=== PATIENT | female | born 1945 | race Caucasian/White ===

== ENCOUNTER 2016-09-13 12:46 | Emergency (ER) | payer MEDICARE ==
[~2016-09-13] VITALS: Ht 165.1 cm; Wt 68.0 kg
[~2016-09-13 12:46] MED LIST: ASPI81TA82 PO; LOSA100T3 PO; OYST500T77 PO; ROSU10 PO; VITA100018 PO
[2016-09-13 12:47] VITALS: BP 142/90; PULSE 82; RESP 16; TEMP 98.3; O2SAT 98
--- NOTE | 2016-09-13 13:27 | PD ---
HPI . Weakness Chief Complaint: General Weakness Time Seen by Provider: 13:17 Travel History International Travel<30 days: No Contact w/Intl Traveler<30days: No Traveled to known affect area: No History of Present Illness HPI Patient presents with a 2 day history of generalized weakness. She denies any other complaints. She states that she has had this before result of electrolyte disturbance and a UTI. She reports no exacerbating or relieving symptoms. The weakness has been constant and persistent. PFSH Past Medical History Cardiovascular Problems: Yes (HTN) High Cholesterol: Yes Genitourinary: Yes (chronic kidney disease) Hypertension: Yes Parkinson's Disease: Yes ?: Not Menopausal: Yes Past Surgical History Tonsillectomy: Yes Other Surgery: Yes (achilles tendon repair) Social History Alcohol Use: No Tobacco Use: No Substance Use: No Allergies-Medications (Allergen,Severity, Reaction): Coded Allergies: No Known Allergies (Unverified , 09/13/16) Reported Meds & Prescriptions Reported Meds & Active Scripts Active Reported Vitamin D3 (Cholecalciferol) Unknown Strength Tab 1 Tab PO DAILY Crestor (Rosuvastatin Calcium) 10 Mg Tab 10 Mg PO DAILY Potassium Chloride ER (Potassium Chloride) 10 Meq Cap 10 Meq PO DAILY Sinemet (Carbidopa-Levodopa) 25-100 Mg Tab 1 Tab PO Q8HR Aspirin Adult Low Strength (Aspirin) 81 Mg Tabdr 81 Mg PO DAILY Review of Systems Except as stated in HPI: all other systems reviewed are Neg General / Constitutional: No: Fever, Chills Eyes: No: Blurred Vision, Drainage, Redness HENT: No: Headaches, Lightheadedness Cardiovascular: No: Chest Pain or Discomfort Respiratory: No: Shortness of Breath Gastrointestinal: No: Nausea, Vomiting, Diarrhea, Abdominal Pain Genitourinary: No: Urgency, Frequency, Dysuria Musculoskeletal: No: Myalgias, Arthralgias Neurologic: Positive: Weakness, Tremor (she has a history of Parkinson's), No : Dizziness, Syncope Physical Exam Narrative GENERAL: Patient is awake and alert and in no acute distress. SKIN: Warm and dry. HEAD: Atraumatic. Normocephalic. EYES: Pupils equal and round. Extraocular movements are intact. ENT: No nasal bleeding or discharge. Mucous membranes pink and moist. NECK: Trachea midline. Neck is supple. CARDIOVASCULAR: Regular rate and rhythm. Heart sounds are normal. RESPIRATORY: No accessory muscle use. Lungs are clear with full air movement throughout. GASTROINTESTINAL: Abdomen soft, non-tender, nondistended. MUSCULOSKELETAL: No obvious deformities. No edema. NEUROLOGICAL: Awake and alert. No obvious cranial nerve deficits. Motor grossly within normal limits. Normal speech. She has a resting tremor. PSYCHIATRIC: Appropriate mood and affect; insight and judgment normal. Data Data Last Documented VS Vital Signs Date Time Temp Pulse Resp B/P Pulse Ox O2 Delivery O2 Flow Rate FiO2 09/13/16 12:47 98.3 82 16 142/90 98 Orders Electrocardiogram (09/13/16 13:17) Basic Metabolic Panel (Bmp) (09/13/16 13:17) Complete Blood Count With Diff (09/13/16 13:17) Magnesium (Mg) (09/13/16 13:17) Urinalysis - C+S If Indicated (09/13/16 13:17) Iv Access Insert/Monitor (09/13/16 13:17) Sodium Chloride 0.9% Flush (Ns Flush) (09/13/16 13:30) Labs Laboratory Tests Test 09/13/16 09/13/16 13:30 13:55 Sodium Level 137 MEQ/L Potassium Level 4.3 MEQ/L Chloride Level 101 MEQ/L Carbon Dioxide Level 26.6 MEQ/L Anion Gap 9 MEQ/L Blood Urea Nitrogen 20 MG/DL Creatinine 1.24 MG/DL Estimat Glomerular Filtration 43 ML/MIN Rate Random Glucose 100 MG/DL Calcium Level 9.6 MG/DL Magnesium Level 2.1 MG/DL Urine Color LIGHT-YELLOW Urine Turbidity CLEAR Urine pH 7.0 Urine Specific Davey 1.006 Urine Protein NEG mg/dL Urine Glucose (UA) NEG mg/dL Urine Ketones NEG mg/dL Urine Occult Blood NEG Urine Nitrite NEG Urine Bilirubin NEG Urine Urobilinogen LESS THAN 2.0 MG/DL Urine Leukocyte Esterase NEG Urine RBC 1 /hpf Urine WBC LESS THAN 1 /hpf Urine Mucus FEW /lpf Microscopic Urinalysis Comment CULT NOT INDICATED MDM Medical Decision Making Medical Screen Exam Complete: Yes Emergency Medical Condition: Yes Medical Record Reviewed: Yes (patient was seen here on 05/15/15 for same. He was found to have low magnesium and low potassium.) Interpretation(s) EKG shows sinus rhythm with no acute ischemic change. EKG is unchanged from previous. Differential Diagnosis Differential diagnosis of weakness includes but is not limited to infection, CVA , electrolyte disturbance, renal failure, hypoglycemia, UTI, ACS, acute blood loss Narrative Course Patient presents for the evaluation of weakness. He has no focal physical exam findings with the exception of the resting tremor. BMP Diagram 09/13/16 13:30 UA is negative for infection. Diagnosis Primary Impression: Weakness Patient Instructions: General Instructions, Weakness (ED) Disposition: 01 DISCHARGE HOME Condition: Stable Inés Copeland MD September 13, 2016 13:27
[2016-09-13] MEDS ORDERED: SODIUM CHLORIDE 0.9% FLUSH 10 ML FLUSH IVF PRN (13:30)
[2016-09-13] MEDS ORDERED: VITD400 PO (13:57)
[2016-09-13] MEDS ORDERED: ROSU10 PO (13:57)
[2016-09-13] MEDS ORDERED: ASPI1TAB91 PO (13:57)
[2016-09-13] MEDS ORDERED: POTA10CA PO (13:57)
[2016-09-13] MEDS ORDERED: SINE25TA PO (13:57)
[2016-09-13 14:23] LABS: BICARBONATE 26.6 MEQ/L (21.0-32.0); MAGNESIUM 2.1 MG/DL (1.5-2.5); POTASSIUM 4.3 MEQ/L (3.5-5.1)
[2016-09-13 15:06] LABS: BLOOD, URINE NEG (NEG); COMMENT (UR) CULT NOT INDICATED; CULTURE IF INDICATED CULT NOT INDICATED; GLUCOSE,URINE NEG (NEG); KETONE, URINE NEG (NEG); MUCUS URINE FEW /lpf (OCC); NITRITE,URINE NEG (NEG); URINE COLOR LIGHT-YELLOW (YELLW/STRAW)
[2016-09-13 15:52] VITALS: BP 140/86
--- NOTE | 2016-09-13 17:08 | EKG ---
Date Performed: 09/13/2016 Time Performed: 13:33:33 PTAGE: 70 years EKG: Sinus rhythm BORDERLINE LEFT AXIS DEVIATION BORDERLINE ECG NO SIGNIFICANT CHANGE FROM PRIOR ELECTROCARDIOGRAM. PREVIOUS TRACING : 09/13/2016 13.32 DOCTOR: Jose Green Interpretating Date/Time 09/15/2016 10:33:52
== END 2016-09-13 15:53 | disposition home or self-care (01) ==
LOC: NEPE 12:46
DX: R53.1 Weakness (principal); I12.9 Hypertensive chronic kidney disease with stage 1 through stage 4 chronic kidney disease, or unspecified chronic kidney disease; N18.9 Chronic kidney disease, unspecified; G20 Parkinson's disease; Z79.899 Other long term (current) drug therapy
CPT/HCPCS: 80048; 81001; 83735; 93005; 99284